=== PATIENT | male | born 1945 | race Native Hawaiian/Other Pacific Islander ===

== ENCOUNTER 2020-08-22 11:08 | Outpatient (CLI) | payer OTHER | END 2020-08-22 21:53 | disposition home or self-care (01) | LOC: INF 11:08 | PROVIDERS: ATTEND Internal Medicine | DX: Z23 Encounter for immunization (principal) | CPT/HCPCS: 96372 ==

== ENCOUNTER 2020-09-19 10:21 | Outpatient (CLI) | payer OTHER | END 2020-09-19 21:08 | disposition home or self-care (01) | LOC: INF 10:21 | PROVIDERS: ATTEND Internal Medicine | DX: Z23 Encounter for immunization (principal) | CPT/HCPCS: 96372 ==